=== PATIENT | male | born 1960 | race Caucasian/White ===

== ENCOUNTER 2025-02-06 11:12 | Outpatient (CLI) | payer OTHER, SELFPAY ==
--- NOTE | ~2025-02-06 | US_ITS ---
EXAMINATION: US venous doppler [facility] DATE: 02/06/2025 12:25 INDICATION: Right lower extremity swelling and pain TECHNIQUE: Grayscale ultrasound images without and with compression and Doppler ultrasound images of the bilateral lower extremity veins were obtained. COMPARISON: None. FINDINGS: The visualized portions of right common femoral vein, profunda (deep) femoral vein, femoral vein, pos terior tibial veins, and greater saphenous vein outflow are patent. The right popliteal vein demonstrates compressibility and flow on static imaging and cine interrogati on. Poor visualization of the bilateral peroneal veins. The visualized portions of left common femoral vein, profunda femoral vein, femoral vein, popliteal v ein, posterior tibial veins, and greater saphenous vein outflow are patent. IMPRESSION: Poor visualization of the bilateral peroneal veins, sufficient for comment. Otherwise, no deep venous thrombosis is identified within the bilateral lower extremities, as detaile d above. Reviewed, dictated and finalized at location A. IMPRESSION: Poor visualization of the bilateral peroneal veins, sufficient for comment. Otherwise, no deep venous thrombosis is identified within the bilateral lower e xtremities, as detailed above.
--- OUTSIDE RECORDS SUMMARY | 2025-02-06 11:22 | XMS_ITS | Patient Health Record ---
Author Organization [facility] Address [address] [place] [address] JOSÉ Castaneda [address] Care Team Providers Care Critical Care Technician Name Role Phone HEMANT CESAR MD Primary Care Provider Mohamud Shelby Unavailable [phone] ALLERGIES Allergen (clinical drug ingredient) Drug/Non Drug Allergy documented on EMR Reaction Allergy Type Onset Date Status hydromorphone Dilaudid n/v Drug Allergy Act kamryn acetaminophen / oxycodone Percocet Unknown Drug Allergy Active tramadol Ultram n/v Drug Allergy Active Tylenol #3 confused Drug Allergy Active morphine Morphine vomiting Drug Allergy Active Penicillin Unknown Drug Allergy Active REASON FOR REFERRAL No Information MEDICATIONS Medication SIG (Take, Route, Frequency, Duration) Notes Start Date End Date Status Omeprazole 20 MG TAKE 1 CAPSULE BY [facility] EVERY DAY DIRECTED Oral for 30 Active Metoprolol Succinate ER 25 MG Oral for 30 Active SOCIAL HISTORY Tobacco Use: Social History Observation Description Date Details (start date - stop date) Never Smoker NA - NA Sex Assigned At : Social History Observation Description Sex Assigned At Unknown Tobacco Use/Smoking Question Answer Notes Are you a nonsmoker PROBLEMS Problem Type ICD Code Onset Dates Problem Status W/U Status Risk SNOMED Code Notes Problem Unilateral primary osteoarthritis, right knee (M17.11) Active confirmed Primary osteoarthritis (762922357) Problem Spinal enthesopathy, site unspecified (M46.00) Active confirmed Spinal enthesopathy (14037380) Lumbar paraspinous muscle spasm and myofascial pain Problem Spondylosis without myelopathy or radiculopathy, cervical region (M47.812) Active confirmed Cervical spondylosis without myelopathy (509377974) Problem Spondylosis without myelopathy or radiculopathy, lumbar region (M47.816) Active confirmed Lumbosacral spondylosis without myelopathy (23406162) Facet arthropathy/ lumbar spondylosis Problem Spinal stenosis, cervical region (M48.02) Active confirmed Spinal stenosis in cervical region (46364009) Problem Intervertebral disc disorders with radiculopathy, lumbar region (M51.16) Active confirmed Radiculopathy due to lumbar intervertebral disc disorder (77728953406611 5) Problem Radiculopathy, cervical region (M54.12) Active confirmed Cervical radiculopathy (87692767) Problem Radiculopathy, lumbar region (M54.16) Active confirmed Lumbar radiculopathy (475092091) Problem Radiculopathy, lumbosacral region (M54.17) Active confirmed Lumbosacral radiculopathy (3833116) Problem Postlaminectomy syndrome, not elsewhere classified (M96.1) Active confirmed Post-laminectom y syndrome (30587511) Problem Osseous stenosis of neural canal of cervical region (M99.31) Active confirmed Spinal steno sis in cervical region (40079938) Problem Osseous stenosis of neural canal of lumbar region (M99.33) Active confirmed Spinal stenosis of lumbar region (60491871) Problem Spinal stenosis, lumbar region with neurogenic claudication (M48.062) Active confirmed Neurogenic claudication (118616245) VITAL SIGNS Heart Rate 53 /min 08/14/2024 Respiratory Rate 18 /min 08/14/2024 Blood pressure diastolic 82 mm Hg 08/14/2024 Height 5 ft 11 in in 08/14/2024 Blood pressure systolic 121 mm Hg 08/14/2024 Weight 220 lbs 08/14/2024 BMI 30.68 kg/m2 08/14/2024 Encounters Encounter Location Date Provider Diagnosis [facility] [address] [place] [address] [place] [address] 05/24/2024 Mohamud Floresick Radiculopathy, lumba r region M54.16 ; Unilateral primary osteoarthritis, right knee M17.11 ; Spinal enthesopathy, site unspecified M46.00 ; Spondylosis without myelopathy or radiculopathy, lumbar region M47.816 ; Intervertebral disc disorders with radiculopathy, lumbar region M51.16 ; Spinal stenosis, lumbar region with neurogenic claudication M48.062 and Pain in right knee M25.561 [facility] [address] [facility] [place] [address] 05/29/2024 Mohamud Stynowick Unilateral primary osteoarthritis, right knee M17.11 [facility] [address] [facility] [place] [address] 06/13/2024 Mohamud Stynowick [facility] [address] [facility] [address] 06/21/2024 Mohamud Stynowick [facility] [address] [facility] [place] [address] 06/28/2024 Mohamud Stynowick Radiculopathy, lumba r region M54.16 ; Unilateral primary osteoarthritis, right knee M17.11 ; Spinal enthesopathy, site unspecified M46.00 ; Spondylosis without myelopathy or radiculopathy, lumbar region M47.816 ; Intervertebral disc disorders with radiculopathy, lumbar region M51.16 ; Spinal stenosis, lumbar region with neurogenic claudication M48.062 and Pain in right knee M25.561 [facility] [address] [facility] [place] [address] 07/31/2024 Mohamud Stynowick Unilateral primary osteoarthritis, right knee M17.11 [facility] [address] [facility] [place] [place] [address] 08/14/2024 Mohamud Stynowick Radiculopathy, lumba r region M54.16 ; Unilateral primary osteoarthritis, right knee M17.11 ; Spinal enthesopathy, site unspecified M46.00 ; Spondylosis without myelopathy or radiculopathy, lumbar region M47.816 ; Intervertebral disc disorders with radiculopathy, lumbar region M51.16 ; Spinal stenosis, lumbar region with neurogenic claudication M48.062 and Pain in right knee M25.561 [facility] [address] [facility] [place] [address] 08/21/2024 Mohamud Stynowick [facility] [address] [facility] [place] [address] 09/14/2024 Mohamud Stluciaowick ASSESSMENTS Encounter Date Diagnosis Assessment Notes Treatment Notes Treatment Clinical Notes 05/24/2024 Unilateral primary osteoarthritis, right knee (ICD-10 - M17.11) Schedule a right knee joint steroid injection. The risks of this procedure including pain, bleeding, infection, nerve damage, insomnia, hyperglycemia, hair loss, muscle atrophy, skin depigmentation, weight gain, fluid retention, adrenal suppression, immunosuppression, osteoporosis resulting in fractures, avascular necrosis of the hip, cataracts, bleeding gastric ulcer, worsening pain and failure to relieve pain were discussed and the patient is agreeable to proceeding at this time. 05/24/2024 Radiculopathy, lumbar region (ICD-10 - M54.16) 05/29/2024 Unilateral primary osteoarthritis, right knee (ICD-10 - M17.11) 06/28/2024 Unilateral primary osteoarthritis, right knee (ICD-10 - M17.11) Schedule a right knee joint steroid injection. The risks of this procedure including pain, bleeding, infection, nerve damage, insomnia, hyperglycemia, hair loss, muscle atrophy, skin depigmentation, weight gain, fluid retention, adrenal suppression, immunosuppression, osteoporosis resulting in fractures, avascular necrosis of the hip, cataracts, bleeding gastric ulcer, worsening pain and failure to relieve pain were discussed and the patient is agreeable to proceeding at this time. 06/28/2024 Radiculopathy, lumbar region (ICD-10 - M54.16) 07/31/2024 Unilateral primary osteoarthritis, right knee (ICD-10 - M17.11) 08/14/2024 Radiculopathy, lumbar region (ICD-10 - M54.16) 08/14/2024 Spinal enthesopathy, site unspecified (ICD-10 - M46.00) 08/14/2024 Unilateral primary osteoarthritis, right knee (ICD-10 - M17.11) The patient recently underwent right knee injection done on 07/31/24 and reports a 90% reduction of his knee pain since this procedure. He currently denies a need for any injections or interventions at this time. He would like to return to the office in 1 month for follow-up and reevaluation of his pain at that time. 06/28/2024 Spinal enthesopathy, site unspecified (ICD-10 - M46.00) 05/24/2024 Spinal enthesopathy, site unspecified (ICD-10 - M46.00) 05/24/2024 Spondylosis without myelopathy or radiculopathy, lumbar region (ICD-10 - M47.816) 06/28/2024 Spondylosis without myelopathy or radiculopathy, lumbar region (ICD-10 - M47.816) 08/14/2024 Spondylosis without myelopathy or radiculopathy, lumbar region (ICD-10 - M47.816) 08/14/2024 Intervertebral disc disorders with radiculopathy, lumbar region (ICD-10 - M51.16) 06/28/2024 Intervertebral disc disorders with radiculopathy, lumbar region (ICD-10 - M51.16) 05/24/2024 Intervertebral disc disorders with radiculopathy, lumbar region (ICD-10 - M51.16) 05/24/2024 Spinal stenosis, lumbar region with neurogenic claudication (ICD-10 - M48.062) 06/28/2024 Spinal stenosis, lumbar region with neurogenic claudication (ICD-10 - M48.062) 08/14/2024 Spinal stenosis, lumbar region with neurogenic claudication (ICD-10 - M48.062) 08/14/2024 Pain in right knee (ICD-10 - M25.561) 06/28/2024 Pain in right knee (ICD-10 - M25.561) 05/24/2024 Pain in right knee (ICD-10 - M25.561) 05/24/2024 Other The above-named patient was evaluated in conjunction with Dr. King. I have discussed and reviewed all of the pertinent history, physical examination findings and diagnostic imaging results with him. As a result of our discussion, Dr. King has determined the above assessment and directed the treatment plan. This note was dictated using voice recognition software and therefore inadvertent errors may have occurred. This note was dictated by GAEL Landaverde 06/28/2024 Other The above-named patient was evaluated in conjunction with Dr. King. I have discussed and reviewed all of the pertinent history, physical examination findings and diagnostic imaging results with him. As a result of our discussion, Dr. King has determined the above assessment and directed the treatment plan. This note was dictated using voice recognition software and therefore inadvertent errors may have occurred. This note was dictated by GAEL Landaverde. Total Time Spent with Patient and Medical Decision Makin minutes 08/14/2024 Other The above-named patient was evaluated in conjunction with Dr. King. I have discussed and reviewed all of the pertinent history, physical examination findings and diagnostic imaging results with him. As a result of our discussion, Dr. King has determined the above assessment and directed the treatment plan. This note was dictated using voice recognition software and therefore inadvertent errors may have occurred. This note was dictated by GAEL Landaverde. Total Time Spent with Patient and Medical Decision Makin minutes PLAN OF TREATMENT No Information Insurance Providers Payer Name Payer Address Payer Phone Subscriber Number Group Number Insured Name Patient Relationship to Insured Coverage Start Date Coverage End Date [facility] [address] [place] [phone] [id number] LIBIA LONG Self - patient is the insured 7 MEDICAL (GENERAL) HISTORY Medical History History ICD Code Hypertension Osteomylelitis Thrombocytopenia GERD ITP Surgical History Surgery Date(Month/Year) Right Carpal tunnel release 1994 Left knee arthroplasty 2007 L2/L3 spinous process removed for osteom yelitis 2007 L3-4 Laminectomy
--- OUTSIDE RECORDS SUMMARY | 2025-02-06 11:22 | XMS_ITS | Clinical Summary ---
Author Organization [facility] at the [facility] Address [address] [place] [address] Care Team Providers Care Geological Technician Name Role Phone Corey Killian MD Primary Care Provider [phone] Yassine Dsouza MD PhD Unavailable [phone] Allergies Active Allergy Reactions Criticality Noted Date Comments Morphine Sulfate Vomiting Low 07/13/2019 Oxycodone Nausea & Vomiting Low 04/10/2024 Able to tolerate tylenol-3 Penicillin Unknown 07/21/2023 Unsure of reaction able to take amoxicillen Medications omeprazole (PriLOSEC) 20 mg capsule Take 1 capsule (20 mg total) by mouth daily 30 capsule 3 Active clotrimazole-be tamethasone (LOTRISONE) cream Apply 1 Application topically 2 (two) times a day 30 g 1 3 Active ibuprofen 200 mg tab/cap Take 2 tablet/capsule (400 mg total) by mouth every 6 (six) hours as needed for pain Active acetaminophen-c odeine (TYLENOL with CODEINE #3) 300-30 mg per tabletIndicatio ns:Carpal tunnel syndrome on left Take 1 tablet by mouth every 4 (four) hours as needed for pain 10 tablet 4 Active Additional Information Patient not taking.Informant: Self, Reported on 01/16/2025 metoprolol XL (TOPROL-XL) 25 mg extended release tablet TAKE 1 TABLET(25 MG) BY MOUTH DAILY 30 tablet 2 5 Active Active Problems Problem Noted Date Diagnosed Date Trigger middle finger of right hand 10/19/2024 Carpal tunnel syndrome on left 03/10/2024 Idiopathic thrombocytopenic purpura (ITP) 2022 Thrombocytopenia 01/05/2023 History of atrial fibrillation 01/05/2023 Gastroesophageal reflux disease without esophagi tis 01/05/2023 Primary osteoarthritis involving multiple joints 07/26/2022 Resolved Problems Problem Noted Date Diagnosed Date Resolved Date Acute ITP 01/24/2023 07/21/2023 Rash and nonspecific skin eruption 03/20/2021 01/04/2023 Need for prophylactic vaccin ation and inoculation against influenza 07/13/2019 01/04/2023 Essential hypertension 07/13/201901/05 Annual physical exam 07/13/2019 023 Encounters Date Type Department Care Team Description 01/17/2025 Results Follow-Up [facility] Family Medicine at [address] [id number] Sharla Lo PA PSA screen, Comprehensive metabolic panel, eGFR 01/16/2025 3:07 PM CDT - 01/16/2025 11:59 PM CDT Hospital Encounter [address] [address] Screening for prostate cancer; Pre-operative laboratory examination Discharge Disposition: Discharge to home or self care 01/16/2025 1:00 PM CDT Office Visit [facility] [address] [place] [phone] Yassine Dsouza MD PhD Acute ITP (HCC) (Primary Dx) 01/16/2025 12:30 PM CDT Lab [facility] [address] [place] [phone] Thrombocytopenia 01/16/[address] [address] Rabia Rivers RN Thrombocytopenia (Primary Dx) 01/11/2025 3:00 PM CDT Office Visit [facility] Family Medicine at [address] [place] [address] Corey Killian MD Pre-operative cardiovascular examination (Primary Dx); Pre-operative laboratory examination; Idiopathic thrombocytopenic purpura (ITP) (HCC); Gastroesophageal reflux disease without esophagitis; History of atrial fibrillation; Primary osteoarthritis of right knee; Screening for prostate cancer 12/29/2024 Telephone [facility] Family Medicine at [address] [place] [phone] Corey Killian MD Forms Request (Surgical clearance paperwork for knee replacement ) 11/23/2024 1:30 PM CDT Office Visit [facility] Hand Surgery [address] [place] [address] [address] [place] [address] Betzaida Herrera PA Post-operative state (Primary Dx) from Last 3 Months Immunizations Immunization Administration Dates Next Due Influenza, Quadrivalent, Spl it, Intramuscular 07/14/2018,07/12/2017,06/30/2016 Influenza, Quadrivalent, Spl it, Preservative Free, Intramuscular 07/21/2023,07/16/2022,07/11/2020,07/13 Influenza, Trivalent, Preser vative Free, Intramuscular 07/24/2024 Influenza, Unspecified 07/14/2021 Surgical History Surgery Date Site/Laterality Comments REPLACEMENT TOTAL KNEE 09/13/2017 - 09/12/2018 Left BACK SURGERY COLONOSCOPY 09/13/2023 - 09/12/2024 SPINE SURGERY for infection Medical History Medical History Date Comments Arrhythmia Occurred once in 2007 when patient hospitalized for osteomyelitis Osteomyelitis of lumbar spine (HCC) L3-L4 s/p surgical debridement 2007 Cervical stenosis of spine GERD (gastroesophageal reflux disease) Allergy to narcotic PONV (postoperative nausea and vomiting) following colonoscopy Osteomyelitis (HCC) Carpal tunnel syndrome Obesity Headache migraines from D DD in neck monthly Family History Medical History Relation Name Comments COPD Brother Esophageal cancer Father No Known Problems Half-Sister 1 No Known Problems Half-Sister 2 Emphysema Mother Relation Name Status Comments Brother Alive Father Half-Sister 1 Alive Half-Sister 2 Alive Mother Social History Tobacco Use Types Packs/Day Years Used Date Smoking Tobacco: Former Cigarettes Smokeless Tobacco: Former Tobacco Cessation:Counseling Given: Not Answered Alcohol Use Standard Drinks/Week Comments Yes 0 (1 standard drink = 0.6 oz pur e alcohol) 12 month Social Connection and Isolat ion Panel [NHANES] Answer Date Recorded In a typical week, how many times do you talk on the phone with family, friends, or neighbors? More than three times a week 01/06/2023 How often do you get togethe r with friends or relatives? More than three times a week 01/06/2023 How often do you attend chur ch or taoism services? Never 01/06/2023 Do you belong to any clubs o r organizations such as gnosticist groups, unions, fraternal or athletic groups, or school groups? No 01/06/2023 How often do you attend meet ings of the clubs or organizations you belong to? Never 01/06/2023 Are you , , di vorced, , never , or living with a partner? 01/06/2023 AUDIT-C Answer Date Recorded Q1: How often do you have a drink containing alc ohol? Monthly or less 01/11/2025 Q2: How many drinks containi ng alcohol do you have on a typical day when you are drinking? 1 or 2 01/11/2025 Q3: How often do you have si x or more drinks on one occasion? Never 01/11/2025 Overall Financial Resource Strain (CARDIA) Answe r Date Recorded How hard is it for you to pa y for the very basics like food, housing, medical care, and heating? Not hard at all 01/06/2023 PHQ-2 Answer Date Recorded PHQ-2 Total Score (If total score is 3 or more points, staff should administer the PHQ-9) 0 01/11/2025 Hunger Vital Sign Answer Date Recorded Within the past 12 months, y ou worried that your food would run out before you got the money to buy more. Never true 01/07/20 23 Within the past 12 months, t he food you bought just didn't last and you didn't have money to get more. Never true 01/06/2023 PRAPARE - Transportation Answer Date Re corded In the past 12 months, has l ack of transportation kept you from medical appointments or from getting medications? No 12/13 In the past 12 months, has l ack of transportation kept you from meetings, work, or from getting things needed for daily living? No 01/06/2023 Personal Safety Answer Date Recorded Have you ever been in or are you currently in a harmful physical or emotional relationship or is someone making you feel afraid or unsafe? 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 Gender Identity Not on file Sexual Orientation Not on file Obstetrics History Last Filed Vital Signs Vital Sign Reading Time Taken Comments Blood Pressure 112/75 01/16/2025 1:05 PM CDT Pulse 75 01/16/2025 1:05 PM CDT Temperature 36.6 C (97.9 F) 01/16/2025 1:05 PM CDT Respiratory Rate 18 01/16/2025 1:05 PM CDT Oxygen Saturation 96% 01/16/2025 1:05 PM CDT Inhaled Oxygen Concentration - - Weight 106.7 kg (235 lb 3.2 oz) 01/16/2025 1:05 PM CDT Height 177.8 cm (5' 10) 01/16/2025 1:05 PM CDT Body Mass Index 33.75 01/16/2025 1:05 PM CDT Plan of Treatment Health Maintenance Due Date Last Done Comments Hepatitis C Screening 1962 DTaP/Tdap/Td Vaccine (1 - Tdap) 1973 Hepatitis B Screening 1980 Zoster Vaccine (1 of 2) 2012 Regular Well Visit/Exam 18-64 07/24/2025 07/24/2024, 07/21/2023, 07/16/2022, Additional history exists Depression Screening 01/11/2026 01/11/2025, 07/24/2024, 01/05/2023, Additional history exists Prostate Cancer Screening-PSA 01/16/2027 01/16/2025, 01/11/2024, 06/04/2022 Colon Cancer Screening-Colonoscopy 07/05/2028 07/05/2023, 01/31/2018 Colon Cancer Screening-CT Colonography Discontinued 07/05/2023, 01/31/2018 Colon Cancer Screening-DNA Stool Discontinued 07/05/2023, 01/31/2018 Colon Cancer Screening-FIT Discontinued 07/05/2023, Colon Cancer Screening-Sigmoidoscopy Discontinued 07/05/2023, 01/31/2018 Influenza Vaccine Completed 07/24/2024, , 07/16/2022, Additional history exists Pneumococcal vaccine <65 Aged Out No longer eligible based on patient's age to complete this topic Medical Devices Implanted Type Area Commercial Fisher Device Identifier Shelf Expiration Date Model / Serial / Lot Replacement Left: Knee Procedures Procedure Name Priority Date/Time Associated Diagnosis Comments EGFR Routine 01/16/2025 6:23 PM CDT Pre-operative laboratory examination COMPREHENSIVE METABOLIC PANEL Routine 01/16/2025 6:23 PM CDT Pre-operative laboratory examination PSA SCREEN Routine 01/16/2025 6:23 PM CDT Screening for prostate cancer DIFFERENTIAL AUTO Routine 01/16/2025 12: 10 PM CDT Thrombocytopenia CBC WITH AUTO DIFFERENTIAL Routine 01/16/2025 12:10 PM CDT Thrombocytopenia ECG 12-LEAD Routine 01/11/2025 2:48 PM CDT Pre-operative cardiovascular examination COLONOSCOPY Routine 07/05/2023 from Last 3 Months or Most Recently Relevant to Health Maintenance Results * eGFR (01/16/2025 6:23 PM CDT) eGFR >90 >=60 mL/min/1. 73 m2 Comment: Interpretive Data Reference Interval Normal >/= 90 mL/min/1.73m2 Mildly decreased* 60 - 89 mL/min/1.73m2 Mildly to moderately decreased 45 - 59 mL/min/1.73m2 Moderately to severely decreased 30 - 44 mL/min/1.73m2 Severely decreased 15 - 29 mL/min/1.73m2 Kidney Failure < 15 mL/min/1.73m2 *Relative to young adult level Estimated glomerular filtration rate is determined by the 2020 CKD-EPI equation recommended by the National Kidney Foundation (A Unifying Approach to GFR Estimation: Recommendations of the NKF-ASK Task Force on Reassessing the Inclusion of Race in Diagnosing Kidney Disease, JASN 2020). The CKD-EPI equation should not be used for patients with unstable renal function and has not been validated in children and those over 70. Current interpretive data was last reviewed 2021. Blood 01/16/2025 6:23 PM CDT 01/16/2025 6:23 PM CDT Corey Killian MD LAB BLOOD ORDERABLES Final Re sult Performing Organization Address [facility] Co de Phone Number [facility] [address] [place] [address] * PSA screen (01/16/2025 6:23 PM CDT) PSA-Total 3.81 <=5.40 ng/mL Comment: Interpretive Data AGE SEX REFERENCE INTERVAL 0 minutes-150 years Female None 0 minutes-49 years Male None 50-59 years Male 0-3.90 60-69 years Male 0-5.40 70-79 years Male 0-6.20 80-150 years Male 0-6.20 The Dario PSA Total assay procedure was used. Results from different manufacturers or methods may not be comparable. Serial testing should be performed using the same method. Current interpretive data last revised 22. Blood 01/16/2025 6:23 PM CDT 01/16/2025 6:23 PM CDT Corey Killian MD LAB BLOOD ORDERABLES Final Re sult Performing Organization Address [facility] Co de Phone Number [facility] [address] [place] [address] * (ABNORMAL) Comprehensive metabolic panel (01/16/2025 6:23 PM CDT) Sodium 142 135 - 145 mmol/L Potassium, pl 4.0 3.3 - 4.9 mmol/L [facility] Chloride 107 97 - 110 mmol/L [facility] CO2 25 22 - 32 mmol/L [facility] Anion gap 10 2 - 15 mmol/L [facility] BUN 14 6 - 25 mg/dL [facility] Creatinine 0.77(L) 0.80 - 1.30 mg/dL [facility] Glucose 66(L) 70 - 199 mg/dL [facility] Comment: Interpretive Data Fasting glucose >/= 126 mg/dl is diagnostic for diabetes. Fasting is defined as no caloric intake for at least 8 hours. Fasting glucose between 100 mg/dl to 125 mg/dl is diagnostic of prediabetes. In a patient with classic symptoms of hyperglycemia or hyperglycemic crisis, a random glucose >/= 200 mg/dl is diagnostic for diabetes. In the absence of unequivocal hyperglycemia, results should be confirmed by repeat testing. The classification and Diagnosis of Diabetes Diabetes Care 2021; 46: S19-S40. Current interpretive data was last revised 2022. Calcium 9.0 8.5 - 10.3 mg/dL [facility] Bilirubin, total 1.0 0.1 - 1.2 mg/dL [facility] Protein, pl 6.6 6.5 - 8.5 g/dL [facility] Albumin 4.2 3.5 - 5.0 g/dL [facility] Alk phos 76 40 - 130 Units/L [facility] ALT 21 7 - 55 Units/L [facility] AST 28 10 - 50 Units/L [facility] Blood 01/16/2025 6:23 PM CDT 01/16/2025 6:23 PM CDT us Corey Killian MD LAB BLOOD ORDERABLES Final Re sult [facility] [address] Department [place] [address] * (ABNORMAL) Differential, auto (01/16/2025 12:10 PM CDT) Neutrophil abs 3.86 1.50 - 6.50 K/cumm Imm gran abs 0.02 0.00 - 0.10 K/cumm [facility] Lymphocyte abs 2.90 0.80 - 3.30 K/cumm [facility] Monocyte abs 1.11(H) 0.20 - 0.80 K/cumm [facility] Eosinophil abs 0.23 0.00 - 0.50 K/cumm [facility] Basophil abs 0.06 0.00 - 0.10 K/cumm [facility] Neutrophil pct 47.2 % [facility] Comment: Interpretive Data Percent cell count reference ranges are not reported, since discordance with absolute values may lead to misinterpretation of CBC data. Current Interpretive Data was last revised on 2017. Imm gran pct 0.2 % [facility] Comment: Interpretive Data Percent cell count reference ranges are not reported, since discordance with absolute values may lead to misinterpretation of CBC data. Current Interpretive Data was last revised on 2017. Lymphocyte pct 35.5 % [facility] Comment: Interpretive Data Percent cell count reference ranges are not reported, since discordance with absolute values may lead to misinterpretation of CBC data. Current Interpretive Data was last revised on 2017. Monocyte pct 13.6 % [facility] Comment: Interpretive Data Percent cell count reference ranges are not reported, since discordance with absolute values may lead to misinterpretation of CBC data. Current Interpretive Data was last revised on 2017. Eosinophil pct 2.8 % [facility] Comment: Interpretive Data Percent cell count reference ranges are not reported, since discordance with absolute values may lead to misinterpretation of CBC data. Current Interpretive Data was last revised on 2017. Basophil pct 0.7 % [facility] Comment: Interpretive Data Percent cell count reference ranges are not reported, since discordance with absolute values may lead to misinterpretation of CBC data. Current Interpretive Data was last revised on 2017. Blood 01/16/2025 12:1 0 PM CDT 01/16/2025 12:10 PM CDT us Yassine Dsouza MD PhD LAB BLOOD ORDERABLES Fin al Result [facility] [address] Department [place] [address] * CBC with auto differential (01/16/2025 12:10 PM CDT) WBC 8.18 3.80 - 9.90 K/cumm Hgb 14.8 13.0 - 17.5 g/dL [facility] Hct 41.8 38.9 - 50.3 % [facility] Plt 198 150 - 400 K/cumm [facility] MPV 10.3 9.1 - 12.3 fL [facility] RBC 4.77 4.30 - 5.80 M/cumm [facility] MCV 87.6 81.3 - 96.4 fL [facility] MCH 31.0 27.1 - 33.3 pg [facility] MCHC 35.4 32.3 - 35.7 g/dL [facility] RDW CV 12.9 11.1 - 14.9 % [facility] RDW SD 41.7 35.7 - 48.1 fL [facility] NRBC abs 0.00 0.00 - 0.01 K/cumm [facility] ANC Prelim 3.86 1.50 - 6.50 K/cumm [facility] Comment: Interpretive Data The rapid ANC is a preliminary automated count and may vary from the final ANC (Neut Abs) reported in the WBC differential that follows. Current interpretive data was last revised 2024. Blood 01/16/2025 12:1 0 PM CDT 01/16/2025 12:10 PM CDT us Yassine Dsouza MD PhD LAB BLOOD ORDERABLES Fin al Result [facility] [address] Department [place] [address] * Colonoscopy (07/05/2023) Anatomical Region Laterality Modality Other us Historical Provider ENDOSCOPY PROCEDURES Lali l Result from Last 3 Months or Most Recently Relevant to Health Maintenance Insurance [facility] OPEN ACCESS OPEN ACCESS NA OPEN ACCESS Advance Directives For more information, please contact: [phone] * Full Code (Latest Code Status on File) Date Activated Date Inactivated Comments 01/22/2023 10:21 AM 01/23/2023 7:52 PM * Full Code Date Activated Date Inactivated Comments 01/05/2023 7:48 PM 01/07/2023 3:27 PM Care Teams Geological Technician Relationship Specialty Start Date End Date Corey Killian MD PCP - General Family Medicine 07/10/19 Yassine Dsouza MD PhD [address] [place] [address] Medical Oncologist/Extractor Operator Solvent Process Hematology and Oncology 01/11/23
--- OUTSIDE RECORDS SUMMARY | 2025-02-06 11:22 | XMS_ITS ---
Author Organization [facility] Address [address] [facility] [place] [address] Care Team Providers Care Forklift Driver Name Role Phone HEMANT CESAR MD Primary Care Provider UnavailMohamud Crump Unavailable [phone] ALLERGIES Allergen (clinical drug ingredient) Drug/Non Drug Allergy documented on EMR Reaction Allergy Type Onset Date Status hydromorphone Dilaudid n/v Drug Allergy Act kamryn acetaminophen / oxycodone Percocet Unknown Drug Allergy Active tramadol Ultram n/v Drug Allergy Active Tylenol #3 confused Drug Allergy Active morphine Morphine vomiting Drug Allergy Active Penicillin Unknown Drug Allergy Active REASON FOR VISIT Follow Up, Right Knee Pain MEDICATIONS Medication SIG (Take, Route, Frequency, Duration) Notes Start Date End Date Status Omeprazole 20 MG TAKE 1 CAPSULE BY [facility] EVERY DAY DIRECTED Oral for 30 Active Metoprolol Succinate ER 25 MG Oral for 30 Active SOCIAL HISTORY Tobacco Use: Social History Observation Description Date Details (start date - stop date) Never Smoker NA - NA Sex Assigned At : Social History Observation Description Sex Assigned At Unknown Tobacco Use/Smoking Question Answer Notes Are you a nonsmoker VITAL SIGNS Blood pressure systolic 121 mm Hg 08/14/20 24 Blood pressure diastolic 82 mm Hg 024 Heart Rate 53 /min 08/14/2024 Respiratory Rate 18 /min 08/14/2024 Height 5 ft 11 in in 08/14/2024 Weight 220 lbs 08/14/2024 BMI 30.68 kg/m2 08/14/2024 Encounters Encounter Location Date Provider Diagnosis [facility] [address] [facility] [place] [address] [place] [address] 08/14/2024 Mohamud King Radiculopathy, lumba r region M54.16 ; Unilateral primary osteoarthritis, right knee M17.11 ; Spinal enthesopathy, site unspecified M46.00 ; Spondylosis without myelopathy or radiculopathy, lumbar region M47.816 ; Intervertebral disc disorders with radiculopathy, lumbar region M51.16 ; Spinal stenosis, lumbar region with neurogenic claudication M48.062 and Pain in right knee M25.561 ASSESSMENTS Encounter Date Diagnosis Assessment Notes Treatment Notes Treatment Clinical Notes 08/14/2024 Radiculopathy, lumbar region (ICD-10 - M54.16) 08/14/2024 Unilateral primary osteoarthritis, right knee (ICD-10 [...] reevaluation of his pain at that time. 08/14/2024 Spinal enthesopathy, site unspecified (ICD-10 - M46.00) 08/14/2024 Spondylosis without myelopathy or radiculopathy, lumbar region (ICD-10 - M47.816) 08/14/2024 Intervertebral disc disorders with radiculopathy, lumbar region (ICD-10 - M51.16) 08/14/2024 Spinal stenosis, lumbar region with neurogenic claudication (ICD-10 - M48.062) 08/14/2024 Pain in right knee (ICD-10 - M25.561) 08/14/2024 Other The above-named patient was evaluated [...] Medical Decision Makin minutes PLAN OF TREATMENT Treatment Notes Assessment Notes Unilateral primary osteoarth ritis, right knee The patient recently underwent right kne e injection done on 07/31/24 and reports a 90% reduction of his knee pain since this procedure. He currently denies a need for any injections or interventions at this time. He would like to return to the office in 1 month for follow-up and reevaluation of his pain at that time. Other The above-named patient was evaluated in [...] with Patient and Medical Decision Makin minutes Next Appt Details Follow Up: 4 Weeks OPV, Reas on: Progress Notes * Examination Category Sub-Category Detail Notes Examination/ Pre-Anesthesia Assessment General: : The patient is alert and o riented X 3 in no acute distress HEENT: : Normocephalic, atr aumatic. PERRL. The oropharynx is clear Neck: : There is full rang e of motion of the cervical spine Heart: : Regular rate and r hythm Chest: : Clear to auscultat ion bilaterally Abdomen: : Soft and benign Musculoskeletal and Extremities: : There is tenderness to palpation over the bilateral L3-4 through L5-S1 facet joints. Christopher's and gaenslen's are negative bilaterally, There is diffuse tenderness to palpation about the right knee joint. There is crepitus with range of motion testing Neurological: : There is positive straight leg raising on the left Skin: : Clean, dry, intact Psychiatric: : Mood and affect ar e normal History and Physical Notes * HPI (History of Present Illness) Category Sub-Category Detail Notes Pain Management Radiographic Imaging MRI lumbar spine done on 10/08/14 demonstrates DDD and bilateral facet arthropathy at all levels of the lumbar spine. At L3-4 there is a central disc bulge with a right paracentral disc protrusion causing severe right-sided foraminal stenosis. At L5-S1 there is a left lateral disc protrusion and in combination with facet hypertrophy this causes severe left and moderate right foraminal stenosis. At L5-S1 there is a central disc bulge with a superimposed left paracentral disc protrusion contacting the descending left S1 spinal nerve root. There is severe left sided foraminal stenosis. An MRI lumbar spine done on 02/11/23 demonstrates bilateral facet arthropathy and DDD at all levels of the lumbar spine. There is an L3-4 laminectomy. At L2-3 there is a disc bulge asymmetric to the right and in combination with facet and ligament hypertrophy this causes moderate to severe central canal and severe right lateral recess and foraminal stenosis. At L3-4 there is severe right and moderate left foraminal stenosis. At L4-5 there is a disc bulge asymmetric to the left and in combination with facet and ligament hypertrophy this causes severe left lateral recess and foraminal stenosis. At L5-S1 there is severe left foraminal stenosis. An MRI cervical spine done on 02/11/23 demonstrates reversal of the normal cervical lordosis consistent with muscle spasm. There is bilateral facet and uncovertebral hypertrophy from C3-4 through C6-C7. At C3-4 there is a central disc bulge and in combination with ligament hypertrophy there is moderate central canal and moderate bilateral foraminal stenosis. At C4-5 there is mild to moderate central canal and moderate to severe left foraminal stenosis. At C5-C6 there is mild central canal and moderate bilateral foraminal stenosis. At C6-7 there is moderate bilateral foraminal stenosis. At C7-T1 there is moderate bilateral foraminal stenosis Right knee xray /06/24 revealed moderate degenerative changes are present. There is medial joint space narrowing. Assessment and Follow-up: Follow-up Plan documen red:: Yes [facility] Quality 2020: MIPS Documented:: Compliant
--- OUTSIDE RECORDS SUMMARY | 2025-02-06 11:22 | XMS_ITS | Encounter Summary ---
Author Organization [facility] Healthcare Address [address] [place] [address] Care Team Providers Care Perennial House Manager Name Role Phone Corey Killian MD Primary Care Provider [phone] Yassine Dsouza MD PhD Unavailable [phone] Encounter Details Date Type Department Care Team (Late st Contact Info) Description 01/17/2025 Results Follow-Up [facility] Family Medicine at [address] [place] [address] Sharla Lo, [address] [address] PSA screen, Comprehensive metabolic panel, eGFR Social History Tobacco Use Types Packs/Day Years Used Date Smoking Tobacco: Former Cigarettes Smokeless Tobacco: Former Alcohol Use Standard Drinks/Week Comments Yes 0 [...] often do you attend chur ch or buddhism services? 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
--- OUTSIDE RECORDS SUMMARY | 2025-02-06 11:22 | XMS_ITS ---
Author Organization [facility] Address [address] [facility] [facility] [place] [address] Care Team Providers Care Shot Core Drill Operator Name Role Phone HEMANT CESAR MD Primary Care Provider Unavailab Mohamud Bates Unavailable [phone] REASON FOR VISIT follow up Encounters Encounter Location Date Provider Diagnosis [facility] [address] [facility] [place] [address] [place] [address] 08/21/2024 Mohamud King PLAN OF TREATMENT No Information
--- OUTSIDE RECORDS SUMMARY | 2025-02-06 11:22 | XMS_ITS | Continuity of Care Document ---
Author Organization [facility] Address [address] [place] [address] Phone Care Team Providers Care Curling Machine Operator Name Role Phone James SPIVEY, Bipin Unavailable Unavailable Advance Directives Directive Yes / No Effective Date File Name No Information Encounters Encounter Description Practice Location Reason(s) For Visit Diagnoses Date Provider Providers Copied on Encounter [facility], [address], [place], [place], [id number], [place] tel:[phone] [facility] No Information James Voss. [address] , [place], [place], [id number], [place]. tel:[phone] Referring Provider: Bipin Sow, [address], [place], [address]. tel:[phone] Family History Family Member Type Diagnosis Age At Onset No Information Payers Payer name Insurance type Covered republican ID Authoriza timagda(s) KIARA MARIA [id number] Social History Type Description Quantity Date Captured Comments Sex Male Smoking Status No Information Chief Complaint And Reason For Visit No Information Reason For Referral Reason For Referral No Information History Of Present Illness Encounter Date Complaint History Of Prese nt Illness No Information Functional Status Date Functional Assessmen t No Information Instructions Date Instruction Additional Infor mation No Information Assessments Type Assessment Date No Information Patient Care Teams Name Effective Dates (start - stop) Status Members No Information
--- OUTSIDE RECORDS SUMMARY | 2025-02-06 11:22 | XMS_ITS | Encounter Summary ---
Author Organization [facility] Healthcare Address [address] [place] [address] Care Team Providers Care Supervisor Photocomposition Name Role Phone Corey Killian MD Primary Care Provider [phone] Yassine Dsouza MD PhD Unavailable [phone] Encounter Details Date Type Department Care Team (Late st Contact Info) Description 05/26/2024 Orders Only [facility] [address] [place] [address] Corey Killian MD [facility] [address] [address] Social History Tobacco Use Types Packs/Day Years Used Date Smoking Tobacco: Former Smokeless Tobacco: Former Alcohol Use Standard Drinks/Week [...] often do you attend chur ch or cheondoism services? Never 01/06/2023 Do you belong to any clubs o r organizations such as advent groups, unions, fraternal or athletic groups, or school groups? No 01/06/2023 How often do you attend meet ings of the clubs or organizations you belong to? Never 01/06/2023 Are you , , di vorced, , never , or living with a partner? 01/06/2023 AUDIT-C Answer Date Recorded Q1: How often do you have a drink containing alc ohol? Monthly or less 04/18/2024 Q2: How many drinks containi ng alcohol do you have on a typical day when you are drinking? 1 or 2 04/18/2024 Q3: How often do you have si x or more drinks on one occasion? Less than monthly 04/18/2024 Overall Financial Resource Strain (CARDIA) Answe r Date Recorded How hard is it for you to pa y for the very basics like food, housing, medical care, and heating? Not hard at all 01/06/2023 PHQ-2 Answer Date Recorded PHQ-2 Total Score (If total score is 3 or more points, staff should administer the PHQ-9) 0 01/05/2023 Hunger Vital Sign Answer Date Recorded Within [...] making you feel afraid or unsafe? 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 Gender Identity Not on file Sexual Orientation Not on file documented as of this encounter Plan of Treatment Not on file documented as of this encounter Procedures Procedure Name Priority Date/Time Associated Diagnosis Comments SCAN - LABS 05/26/2024 documented in this encounter Results * SCAN - LABS (05/26/2024) Corey Killian MD Final Result documented in this encounter Visit Diagnoses Not on filedocumented in this encounter Care Teams Supervisor Photocomposition Relationship Specialty Start Date End Date Corey Killian MD PCP - General Family Medicine 07/10/19 Yassine Dsouza MD PhD [address] [place] [address] Medical Oncologist/Roofing Plant Supervisor Hematology and Oncology 01/11/23 documented as of this encounter
--- OUTSIDE RECORDS SUMMARY | 2025-02-06 11:22 | XMS_ITS | Encounter Summary ---
Author Organization [facility] Care Team Providers Care Data Processing Consultant Name Role Phone Corey Killian MD Primary Care Provider [phone] Yassine Dsouza MD PhD Unavailable [phone] Encounter Details Date Type Department Care Team (Latest Contact Info) Description 02/01/2018 Orders Only [facility] ProviderJenn MD [address] [place] [address] Social History Tobacco Use Types Packs/Day Years Used Date Smoking Tobacco: Never Assessed Sex and Gender Information Value Date Recorded Sex Assigned at Not on file 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 us Historical Provider Final Res ult documented in this encounter Visit Diagnoses Not on filedocumented in this encounter Additional Health Concerns Infection Onset Date Last Indicated Resolved Time MRSA Comment:mrsa in thigh 2 yrs ago 07/08/2012 07/07/2012 04/30/20 5:00 AM CDT documented as of this encounter Care Teams Data Processing Consultant Relationship Specialty Start Date End Date Corey Killian MD PCP - General Family Medicine 07/10/19 Yassine Dsouza MD PhD [address] [place] [address] Medical Oncologist/Marketing Trainee Hematology and Oncology 01/11/23 documented as of this encounter
--- OUTSIDE RECORDS SUMMARY | 2025-02-06 11:22 | XMS_ITS | Referral Summary ---
Author Organization [facility] Address [address] [place] [address] Care Team Providers Care Welding Tester Name Role Phone Corey Killian MD Primary Care Provider [phone] Yassine Dsouza MD PhD Unavailable [phone] Encounters Date Type Department Care Team Description 01/17/2025 Results Follow-Up [facility] at [place] [address] [place] [address] Sharla Lo PA PSA screen, Comprehensive metabolic panel, eGFR 01/16/2025 3:07 PM CDT - 01/16/2025 11:59 PM CDT Hospital Encounter [address] [address] Screening for prostate cancer; Pre-operative laboratory examination Discharge Disposition: Discharge to home or self care 01/16/2025 Orders Only [facility] [address] [place] [phone] Rabia Rivers RN Thrombocytopenia (Primary Dx) 01/16/2025 12:30 PM CDT Lab [facility] [address] [place] [id number] Thrombocytopenia 01/16/2025 1:00 PM CDT Office Visit [address] [address] Yassine Dsouza MD PhD Acute ITP (HCC) (Primary Dx) 01/11/2025 3:00 PM CDT Office Visit [facility] at [address] [place] [address] Corey Killian MD Pre-operative cardiovascular examination (Primary Dx); Pre-operative laboratory examination; Idiopathic thrombocytopenic purpura (ITP) (HCC); Gastroesophageal reflux disease without esophagitis; History of atrial fibrillation; Primary osteoarthritis of right knee; Screening for prostate cancer 12/29/2024 Telephone [facility] at [address] [place] [address] Corey Killian MD Forms Request (Surgical clearance paperwork for knee replacement ) 11/23/2024 1:30 PM CDT Office Visit [facility] [address] [place] [address] [address] [place] [address] Betzaida Herrera PA Post-operative state (Primary Dx) from Last 3 Months Allergies Active Allergy Reactions Criticality Noted Date [...] MG) BY MOUTH DAILY 30 tablet 2 Active Active Problems Problem Noted Date Diagnosed [...] hypertension 07/13/201901/05 Annual physical exam 07/13/2019 023 Immunizations Immunization Administration Dates Next Due Influenza, Quadrivalent, Spl it, Intramuscular 07/14/2018,07/12/2017,06/30/2016 Influenza, Quadrivalent, Spl it, Preservative Free, Intramuscular 07/21/2023,07/16/2022,07/11/2020,07/13 Influenza, Trivalent, Preser vative Free, Intramuscular 07/24/2024 Influenza, Unspecified 07/14/2021 Social History Tobacco Use Types Packs/Day Years [...] often do you attend chur ch or hoahaoism services? 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 The CKD-EPI equation should not be used for patients with unstable renal function and has not been validated in children and those over 70. Current interpretive data was last reviewed 2021. Blood 01/16/2025 6:23 PM CDT 01/16/2025 6:23 PM CDT Corey Killian MD LAB BLOOD ORDERABLES Final [facility] [address] [facility] [employer] [place], [place] [id number] * PSA screen (01/16/2025 6:23 PM CDT) [...] MD LAB BLOOD ORDERABLES Final Re sult [facility] [address] [facility] [place] [address] * (ABNORMAL) Comprehensive metabolic panel (01/16/2025 6:23 PM CDT) Sodium 142 135 - 145 mmol/L Potassium, pl 4.0 3.3 - 4.9 mmol/L [facility] Chloride 107 97 - 110 mmol/L [facility] CO2 25 22 - 32 mmol/L [facility] Anion gap 10 2 - 15 mmol/L [facility] BUN 14 6 - 25 mg/dL [facility] Creatinine 0.77(L) 0.80 - 1.30 mg/dL [facility] Glucose 66(L) 70 - 199 mg/dL [facility] Comment: Interpretive Data Fasting glucose >/= 126 [...] classification and Diagnosis of Diabetes Diabetes Care 202; 46: S19-S40. Current interpretive data was last revised 2022. Calcium 9.0 8.5 - 10.3 mg/dL [facility] Bilirubin, total 1.0 0.1 - 1.2 mg/dL [facility] Protein, pl 6.6 6.5 - 8.5 g/dL [facility] Albumin 4.2 3.5 - 5.0 g/dL [facility] Alk phos 76 40 - 130 Units/L [facility] ALT 21 7 - 55 Units/L [facility] AST 28 10 - 50 Units/L [facility] Blood 01/16/2025 6:23 PM CDT 01/16/2025 6:23 PM CDT us Corey Killian MD LAB BLOOD ORDERABLES Final Re sult [facility] [address] Department [place] [address] * (ABNORMAL) Differential, auto (01/16/2025 12:10 PM CDT) Neutrophil abs 3.86 1.50 - 6.50 K/cumm Imm gran abs 0.02 0.00 - 0.10 K/cumm [facility] Lymphocyte abs 2.90 0.80 - 3.30 K/cumm [facility] Monocyte abs 1.11(H) 0.20 - 0.80 K/cumm [facility] Eosinophil abs 0.23 0.00 - 0.50 K/cumm [facility] Basophil abs 0.06 0.00 - 0.10 K/cumm [facility] Neutrophil pct 47.2 % [facility] Comment: Interpretive Data Percent cell count reference ranges are not reported, since discordance with absolute values may lead to misinterpretation of CBC data. Current Interpretive Data was last revised on 2017. Imm gran pct 0.2 % [facility] Comment: Interpretive Data Percent cell count reference ranges are not reported, since discordance with absolute values may lead to misinterpretation of CBC data. Current Interpretive Data was last revised on 2017. Lymphocyte pct 35.5 % [facility] Comment: Interpretive Data Percent cell count reference ranges are not reported, since discordance with absolute values may lead to misinterpretation of CBC data. Current Interpretive Data was last revised on 2017. Monocyte pct 13.6 % [facility] Comment: Interpretive Data Percent cell count reference ranges are not reported, since discordance with absolute values may lead to misinterpretation of CBC data. Current Interpretive Data was last revised on 2017. Eosinophil pct 2.8 % [facility] Comment: Interpretive Data Percent cell count reference ranges are not reported, since discordance with absolute values may lead to misinterpretation of CBC data. Current Interpretive Data was last revised on 2017. Basophil pct 0.7 % [facility] Comment: Interpretive Data Percent cell count reference ranges are not reported, since discordance with absolute values may lead to misinterpretation of CBC data. Current Interpretive Data was last revised on 2017. Blood 01/16/2025 12:1 0 PM CDT 01/16/2025 12:10 PM CDT us Yassine Dsouza MD PhD LAB BLOOD ORDERABLES Fin al Result [facility] [address] Department [place] [address] * CBC with auto differential (01/16/2025 12:10 PM CDT) WBC 8.18 3.80 - 9.90 K/cumm Hgb 14.8 13.0 - 17.5 g/dL [facility] Hct 41.8 38.9 - 50.3 % [facility] Plt 198 150 - 400 K/cumm [facility] MPV 10.3 9.1 - 12.3 fL [facility] RBC 4.77 4.30 - 5.80 M/cumm [facility] MCV 87.6 81.3 - 96.4 fL [facility] MCH 31.0 27.1 - 33.3 pg [facility] MCHC 35.4 32.3 - 35.7 g/dL [facility] RDW CV 12.9 11.1 - 14.9 % [facility] RDW SD 41.7 35.7 - 48.1 fL [facility] NRBC abs 0.00 0.00 - 0.01 K/cumm [facility] ANC Prelim 3.86 1.50 - 6.50 K/cumm [facility] Comment: Interpretive Data The rapid ANC is a preliminary automated count and may vary from the final ANC (Neut Abs) reported in the WBC differential that follows. Current interpretive data was last revised 2024. Blood 01/16/2025 12:1 0 PM CDT 01/16/2025 12:10 PM CDT Yassine Dsouza MD PhD LAB BLOOD ORDERABLES Fin al Result [facility] [address] Department [place] [address] * Colonoscopy (07/05/2023) Anatomical Region Laterality Modality Other Historical Provider ENDOSCOPY PROCEDURES Lali l Result from Last 3 Months or Most Recently Relevant to Health Maintenance Insurance [employer] OPEN ACCESS CIGNA OPEN ACCESS Advance Directives For more information, please contact: [phone] * Full Code (Latest Code Status on File) Date Activated Date Inactivated Comments 01/22/2023 10:21 AM 01/23/2023 7:52 PM * Full Code Date Activated Date Inactivated Comments 01/05/2023 7:48 PM 01/07/2023 3:27 PM Care Teams Welding Tester Relationship Specialty Start Date End Date Corey Killian MD PCP - General Family Medicine 07/10/19 Yassine Dsouza MD PhD [address] [place] [address] Medical Oncologist/Nurse Tech Hematology and Oncology 01/11/23
--- OUTSIDE RECORDS SUMMARY | 2025-02-06 11:22 | XMS_ITS | Encounter Summary ---
Author Organization 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 us Historical Provider Final Res ult documented in this encounter Visit Diagnoses Not on filedocumented in this encounter Additional Health Concerns Infection Onset Date Last Indicated Resolved Time MRSA Comment:mrsa in thigh 2 yrs ago 07/08/2012 07/07/2012 04/30/20 21 5:00 AM CDT documented as of this encounter Care Teams Outbound Sales Advisor Relationship Specialty Start Date End Date Corey Killian MD PCP - General Family Medicine 07/10/19 Yassine Dsouza MD PhD [address] [place] [address] Medical Oncologist/Manager Leadership Development Hematology and Oncology 01/11/23 documented as of this encounter
--- OUTSIDE RECORDS SUMMARY | 2025-02-06 11:22 | XMS_ITS | Encounter Summary ---
Author Organization 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 us Historical Provider Final Res ult documented in this encounter Visit Diagnoses Not on filedocumented in this encounter Additional Health Concerns Infection Onset Date Last Indicated Resolved Time MRSA Comment:mrsa in thigh 2 yrs ago 07/08/2012 07/07/2012 04/30/20 5:00 AM CDT documented as of this encounter Care Teams Exhaust Emissions Automotive Technician Relationship Specialty Start Date End Date Corey Killian MD PCP - General Family Medicine 07/10/19 Yassine Dsouza MD PhD [address] [place] [address] Medical Oncologist/Prototype Carpenter Hematology and Oncology 01/11/23 documented as of this encounter
--- OUTSIDE RECORDS SUMMARY | 2025-02-06 11:23 | XMS_ITS ---
Author Organization [facility] Address [address] [place] [address] [address] [facility] [address] Care Team Providers Care Colorer Name Role Phone HEMANT CESAR MD Primary Care Provider UnavailMohamud Crump Unavailable [phone] ALLERGIES Allergen (clinical drug ingredient) Drug/Non Drug Allergy documented on EMR Reaction Allergy Type Onset Date Status hydromorphone Dilaudid n/v Drug Allergy Act kamryn acetaminophen / oxycodone Percocet Unknown Drug Allergy Active tramadol Ultram n/v Drug Allergy Active Tylenol #3 confused Drug Allergy Active morphine Morphine vomiting Drug Allergy Active Penicillin Unknown Drug Allergy Active REASON FOR VISIT FOLLOW UP MEDICATIONS Medication SIG (Take, Route, Frequency, Duration) Notes Start Date End Date Status Omeprazole 20 MG TAKE [address] [facility] EVERY DAY DIRECTED Oral for 30 Active Metoprolol Succinate ER 25 MG Oral for 30 Active SOCIAL HISTORY Tobacco Use: Social History Observation Description Date Details (start date - stop date) Never Smoker NA - NA Sex Assigned At : Social History Observation Description Sex Assigned At Unknown Tobacco Use/Smoking Question Answer Notes Are you a nonsmoker Encounters Encounter Location Date Provider Diagnosis [facility] [address] [facility] [facility] [place] [address] 09/14/2024 Mohamud King PLAN OF TREATMENT No Information Progress Notes * Examination Category Sub-Category Detail [...] and Follow-up: Follow-up Plan documen red:: Yes [facility] Quality 2020: [facility] Documented:: Compliant
== END 2025-02-06 11:13 | disposition home or self-care (01) ==
PROVIDERS: PCP Family Medicine
DX: R60.0 Localized edema (principal); Z96.651 Presence of right artificial knee joint
CPT/HCPCS: 93970

== ENCOUNTER 2025-04-02 12:44 | Outpatient (CLI) | payer OTHER, SELFPAY ==
--- NOTE | ~2025-04-02 | MR_ITS ---
EXAMINATION: MR hip RT wo con DATE: 04/02/2025 13:32 INDICATION: Right hip labral tear with right hip pain TECHNIQUE: Magnetic resonance imaging (MRI) of the right hip was performed without intravenous contr ast. Sequences included full-field axial PD-weighted FS FSE and T1-weighted FSE, coronal of the pelvi s with PD-weighted FS FSE, T2-weighted FSE and T1-weighted FSE, small field of view of the affected hip with axial PD-weighted FS FSE, sagittal PD-weighted FS FSE, coronal PD-weighted FS FSE and coron al T2 weighted FSE. Additional radial T1-weighted FGR oriented orthogonal to the acetabular rim were obtained for evaluation of the labrum. COMPARISON: None FINDINGS: Bones/labrum/cartilage: Mild lumbar levocurvature with severe spondylosis. No fracture, avascular necrosis or pathologic alisha ow replacing process. There is diffuse tear of the right acetabular labrum which begins anteriorly at the 3:00 position and extend posteriorly to the 10:00 position. There is mild osteoarthritis at the left hip with nonuniform joint space narrowing with posterior predominant partial-thickness cartilage loss without degenerative subchondral changes. Similar findings suggested but not diagnostically blossom luated the contralateral left hip on the larger [id number] images. Fluid: Symmetric physiologic amount of fluid within both hip joints. Soft tissues: No asymmetric muscle atrophy in the pelvis and visualized proximal thighs. There is asymmetric mild f eathery muscular edema in the right iliacus muscle which could be seen with low-grade strain. Mild le ft ischial bursitis with mild tendinopathy without discrete tear at the ischial tuberosity origin of the proximal left hamstring tendons. Additional mild tendinopathy without tear at the left greater tr ochanteric insertion of the left gluteus medius tendon. The proximal right hamstring tendons in the b ilateral iliopsoas and remaining bilateral gluteal tendons are normal. Prostatomegaly measuring 4.6 x 3.7 cm. Limited evaluation of visceral organs of the pelvis is otherwise unremarkable. And small fat -containing umbilical hernia. Small right and moderate-sized left fat-containing inguinal hernias. No pathologically enlarged pelvic/inguinal lymphadenopathy. IMPRESSION: 1. Mild right hip osteoarthritis with diffuse anterior to posterior tear of the right acetabular labr um. Similar findings suggested but not diagnostically evaluated the contralateral left hip on the lar adrian [id number] images. 2. Mild lumbar levoscoliosis with severe spondylosis. 3. Mild left ischial bursitis with mild tendinopathy without tear at the proximal left hamstring tend ons. 4. Mild tendinopathy without tear of the distal left radius medius tendon. 5. Asymmetric mild feathery edema at the right iliacus muscle consistent with low-grade strain. 6. Small fat-containing umbilical and small right and moderate-sized left fat-containing inguinal her nias. 7. Prostatomegaly. Reviewed, dictated and finalized at location A. IMPRESSION: 1. Mild right hip osteoarthritis with diffuse anterior to posterior tear of the right acetabular labrum. Similar findings suggested but not diagnostically blossom luated the contralateral left hip on the larger [id number] images. 2. Mild lumbar levoscoliosis with severe spondylosis. 3. Mild left ischial bursitis with mild tendinopathy without tear at the proxim al left hamstring tendons. 4. Mild tendinopathy without tear of the distal left radius medius tendon. 5. Asymmetric mild feathery edema at the right iliacus muscle consistent with l ow-grade strain. 6. Small fat-containing umbilical and small right and moderate-sized left fat-c ontaining inguinal hernias. 7. Prostatomegaly.
== END 2025-04-02 12:45 | disposition home or self-care (01) ==
LOC: GOSHIMG 12:45
DX: S73.191A Other sprain of right hip, initial encounter (principal); X58.XXXA Exposure to other specified factors, initial encounter
CPT/HCPCS: 73721